=== PATIENT | female | born 1940 | race African-American/Black ===

== ENCOUNTER → 2016-09-19 | Outpatient (CLI) | payer MEDICARE ==
[~2016-09-19] MED LIST: IOHEXOL 300 MG/ML 75 ML VIAL IV ONE
[2016-09-19 09:22] LABS: CREATININE 0.7 mg/dL (0.6-1.0); GFR 99.2
--- NOTE | 2016-09-19 10:59 | RAD ---
Indication: Left flank pain left lower quadrant pain for several months. Pre- and postintravenous contrast axial imaging of the abdomen and pelvis was performed. No prior studies are available for comparison. Imaging through the lung bases demonstrate some minimal infiltrate or atelectasis in the lingula. The liver is unremarkable. The gallbladder contains a stone. The pancreas and spleen are unremarkable. No adrenal mass is detected. The kidneys are unremarkable apart from a large cyst involving the lower pole of the right kidney measuring 6.2 cm in size. The aorta is nonaneurysmal. The small and large bowel loops are normal caliber. No free fluid in the abdomen or pelvis is seen. The bladder is unremarkable. No definite abdominal or pelvic lymphadenopathy is identified. Impression: 1. Right renal cyst. No acute feature in the abdomen or pelvis is identified. 2. Cholelithiasis.
== END | disposition home or self-care (01) ==
LOC: CT 08:49
PROVIDERS: ATTEND Nurse Practitioner Occupational Health
DX: J98.11 Atelectasis (principal); R91.8 Other nonspecific abnormal finding of lung field; K80.20 Calculus of gallbladder without cholecystitis without obstruction; N28.1 Cyst of kidney, acquired
CPT/HCPCS: 36415; 74178; 82565; Q9967

== ENCOUNTER → 2017-01-27 | Outpatient (CLI) | payer MEDICARE ==
--- NOTE | 2017-01-27 09:35 | RAD ---
Indication leg pain. Grayscale color Doppler and spectral imaging was performed. The examination was targeted to the veins of the left lower extremity. The common femoral, femoral and popliteal vessels demonstrate normal flow compressibility and augmentation. No thrombus is seen. The calf veins are not optimally visualized but no definite calf DVT was seen. IMPRESSION: Suboptimal visualization of left calf veins. No definite DVT seen in the left lower extremity
--- NOTE | 2017-01-27 09:43 | RAD ---
Indication leg pain. Grayscale color Doppler and spectral imaging was performed. The examination was targeted to the major arteries of the left lower extremity. There is a normal triphasic waveform in the common femoral artery. A biphasic waveform is seen in the deep femoral. A normal triphasic waveform is seen throughout the superficial femoral artery. A biphasic waveform is seen in the popliteal artery indicative of some disease at the SFA popliteal junction. Biphasic waveforms are seen associated with the posterior tibial artery, peroneal artery and anterior tibial arteries. A monophasic to biphasic waveform is seen associated with the dorsal pedal artery. IMPRESSION: No evidence of high-grade arterial stenosis in the major arteries of the left lower extremity
== END | disposition home or self-care (01) ==
LOC: US 08:49
PROVIDERS: ATTEND Family Medicine
DX: M79.605 Pain in left leg (principal)
CPT/HCPCS: 93926; 93971

== ENCOUNTER → 2017-03-08 | Outpatient (CLI) | payer MEDICARE ==
[2017-03-08 16:09] LABS: HEMATOCRIT 40.6 % (36.0-47.0); HEMOGLOBIN 13.7 g/dL (12.0-15.5)
[2017-03-08 16:40] LABS: CREATININE 0.9 mg/dL (0.6-1.0); GFR 74.1
== END | disposition home or self-care (01) ==
LOC: LAB 15:45
PROVIDERS: ATTEND Family Medicine
DX: R27.0 Ataxia, unspecified (principal); H53.8 Other visual disturbances; I10 Essential (primary) hypertension; G62.9 Polyneuropathy, unspecified; E66.9 Obesity, unspecified; K57.90 Diverticulosis of intestine, part unspecified, without perforation or abscess without bleeding; E78.5 Hyperlipidemia, unspecified; K21.9 Gastro-esophageal reflux disease without esophagitis; R73.09 Other abnormal glucose; M54.40 Lumbago with sciatica, unspecified side; K59.01 Slow transit constipation; M25.562 Pain in left knee; G89.29 Other chronic pain; M17.11 Unilateral primary osteoarthritis, right knee; G25.81 Restless legs syndrome; N32.81 Overactive bladder; N95.2 Postmenopausal atrophic vaginitis; J30.1 Allergic rhinitis due to pollen; Z68.36 Body mass index [BMI] 36.0-36.9, adult; Z68.37 Body mass index [BMI] 37.0-37.9, adult; Z68.38 Body mass index [BMI] 38.0-38.9, adult; F41.9 Anxiety disorder, unspecified
CPT/HCPCS: 36415; 82565; 82607; 84443; 84520; 85014; 85018

== ENCOUNTER → 2017-03-13 | Outpatient (CLI) | payer MEDICARE ==
--- NOTE | 2017-03-13 09:40 | RAD ---
MRI Brain without contrast History: Ataxia, vertigo Technique: Multiplanar, multisequential noncontrast MR imaging was performed of the brain. Contrast: None Comparison: April 02, 2015 Findings: There is no evidence of an acute infarct or cytotoxic edema. There is a mild the supratentorial involutional change, ventricular size stable and considered within normal limits. There is again mild T2 and FLAIR hyperintense abnormality of the supratentorial white matter bilaterally, not significantly changed. There is no new significant hemosiderin deposition of the brain parenchyma.There is no significant midline shift, mass effect, or focal abnormal extra-axial fluid collection. There is no significant signal abnormality of the brain parenchyma. There is preservation of the major intracranial flow-voids at the skull base. There is again some patchy fluid and thickening in the right mastoid air cells, left mastoid air cells overall aerated. There is somewhat lobulated fluid signal intensity along the anterior aspect of the maxillary bone, also apparently of the mandible associated with roots of the teeth.The cerebellar tonsils are normal in location. There is no significant abnormality of the pineal gland or pituitary gland. There is patchy mild ethmoid air cell mucosal thickening. There is nonspecific increased CSF signal of the optic nerve sheaths. There is preserved marrow signal of the clivus. Impression: 1. Infrarenal findings are unchanged comparing with the March 2015 exam. Minimal T2 and FLAIR hyperintense abnormality of the supratentorial white matter may be due to chronic microvascular ischemic disease in a patient this age. 2. There is again some patchy fluid and thickening of the right mastoid air cells, mild ethmoid air cell mucosal thickening. 3. Mild increased CSF signal about the nerve sheaths is nonspecific, may be incidental unless suspicion for intracranial hypertension. 4. There are some cystic foci of signal abnormality in the region of the visualized maxillary bone and mandible associated with roots of teeth. Findings may be due to nonspecific cysts unless there is suspicion for periapical abscesses. Electronically signed by: Hernan Cobb MD (03/13/2017 9:37 AM) [facility]
== END | disposition home or self-care (01) ==
LOC: MRI 08:27
PROVIDERS: ATTEND Psychiatry & Neurology Neurology
DX: R27.0 Ataxia, unspecified (principal)
CPT/HCPCS: 70551

== ENCOUNTER → 2017-04-21 | Outpatient (CLI) | payer MEDICARE ==
[2017-04-21 12:25] LABS: BASO # 0.1 x10^3/uL (0.0-0.2); BASO % 1 % (0-3); EOS % 0 % (0-3); HEMATOCRIT 42.2 % (36.0-47.0); HEMOGLOBIN 13.8 g/dL (12.0-15.5); LYMPH # 2.4 x10^3/uL (1.0-4.8); LYMPH % 32 % (24-48); MEAN CORPUSCULAR HEMOGLOBIN 32 pg (25-35); MEAN CORPUSCULAR HGB CONC 33 g/dL (31-37); MEAN CORPUSCULAR VOLUME 98 fL (79-100); MONO % 7 % (0-9); NEUT % 59 % (31-73); PLATELET COUNT 306 x10^3/uL (140-400); RED BLOOD COUNT 4.32 x10^6/uL (3.50-5.40); RED CELL DISTRIBUTION WIDTH 13.1 % (11.5-14.5); WHITE BLOOD COUNT 7.6 x10^3/uL (4.0-11.0)
[2017-04-21 12:35] LABS: PROTHROMBIN TIME PATIENT 12.8 SEC (11.7-14.0)
== END | disposition home or self-care (01) ==
LOC: LAB 12:10
PROVIDERS: ATTEND Psychiatry & Neurology Neurology
DX: G93.2 Benign intracranial hypertension (principal)
CPT/HCPCS: 36415; 85025; 85610

== ENCOUNTER 2017-05-03 07:53 | Outpatient (CLI) | payer MEDICARE ==
[~2017-05-03] VITALS: Ht 170.2 cm; Wt 102.1 kg
[2017-05-03] MEDS ORDERED: LIDOCAINE 1% / SOD BICARB 8.4% 20 ML VIAL. IJ ONE ×2 (08:29→08:30)
[2017-05-03] MEDS ORDERED: AMLO10TA2 PO (08:36)
[2017-05-03] MEDS ORDERED: BUPR150T11 PO (08:36)
[2017-05-03] MEDS ORDERED: ATOR10TA60 PO (08:36)
[2017-05-03] MEDS ORDERED: POLY17PO29 PO (08:36)
[2017-05-03] MEDS ORDERED: LORA10TA3 PO (08:36)
[2017-05-03] MEDS ORDERED: MECL25TA3 PO (08:36)
[2017-05-03] MEDS ORDERED: LISI-338 PO (08:36)
[2017-05-03] MEDS ORDERED: FURO40TA4 PO (08:36)
[2017-05-03] MEDS ORDERED: MECL12.52 PO (08:36)
[2017-05-03] MEDS ORDERED: OMEP40CA5 PO (08:36)
[2017-05-03] MEDS ORDERED: TRAV5DRO EACHEYE (08:36)
[2017-05-03] MEDS ORDERED: fluticasone 50mcg NAS (08:36)
[2017-05-03] MEDS ORDERED: GABA-586 PO (08:36)
[2017-05-03 08:55] VITALS: BP 103/56
[2017-05-03 09:14] LABS: BASO % 0 % (0-3); EOS % 1 % (0-3); HEMATOCRIT 39.5 % (36.0-47.0); HEMOGLOBIN 12.9 g/dL (12.0-15.5); LYMPH # 1.3 x10^3/uL (1.0-4.8); LYMPH % 22 % (24-48); MEAN CORPUSCULAR HEMOGLOBIN 32 pg (25-35); MEAN CORPUSCULAR HGB CONC 33 g/dL (31-37); MEAN CORPUSCULAR VOLUME 99 fL (79-100); MONO % 8 % (0-9); NEUT % 69 % (31-73); PLATELET COUNT 276 x10^3/uL (140-400); RED BLOOD COUNT 4.01 x10^6/uL (3.50-5.40); RED CELL DISTRIBUTION WIDTH 13.1 % (11.5-14.5); WHITE BLOOD COUNT 6.1 x10^3/uL (4.0-11.0)
[2017-05-03 09:44] LABS: INR 1.1 (0.8-1.1); PROTHROMBIN TIME PATIENT 13.4 SEC (11.7-14.0)
[2017-05-03 11:10] VITALS: BP 149/71
[2017-05-03 11:30] VITALS: BP 123/64
[2017-05-03 11:56] LABS: CSF PROTEIN 29.7 mg/dL (15.0-45.0)
--- NOTE | 2017-05-03 12:25 | RAD ---
Indication: Suspect pseudotumor cerebri. Lumbar puncture for purposes of acquiring CSF as well as opening and closing pressures was requested. Lumbar puncture was explained to the patient. The risks of infection and bleeding were outlined. The possibility of damage to nerve roots was discussed. The possibility of a postprocedure headache necessitating placement of a blood patch was also discussed. The patient understood the risks associated with the procedure and wished to proceed. The back was palpated. Using fluoroscopic guidance an appropriate level to gain entry into the subarachnoid space was identified. Initially the patient was placed in a left side on decubitus position and an attempt was made to perform the lumbar puncture with the patient in this position using a midline approach at L2-3. Several attempts were made all of which were unsuccessful. Subsequently the patient was placed prone and a left para midline approach was utilized. A 20-gauge spinal needle was used to gain entry into the subarachnoid space at L3. Clear CSF was encountered. Approximately 4 cc of fluid were withdrawn. A long 15 cm spinal needle was used to gain access into the subarachnoid space. CSF did not flow from the needle indicating a pressure less than 15 mmHg. Prior to all attempted lumbar punctures the skin was prepped and draped in the routine fashion and local anesthesia was accomplished with 1% lidocaine. 2 fluoroscopic images were obtained. Fluoroscopy time associated with the procedure was 9 minutes. IMPRESSION:: Opening pressure less than 15 mmHg. Approximately 4 cc of CSF were withdrawn and sent to the laboratory for analysis.
[2017-05-03 12:47] LABS: CSF CLARITY CLEAR; CSF COLOR COLORLESS
== END 2017-05-03 11:45 | disposition home or self-care (01) ==
LOC: RAD 07:53
PROVIDERS: ATTEND Psychiatry & Neurology Neurology
DX: G93.2 Benign intracranial hypertension (principal); I10 Essential (primary) hypertension
CPT/HCPCS: 36415; 62270; 82945; 83873; 84157; 85025; 85610; 87071; 87075; 87102; 87205; 87252; 89051

== ENCOUNTER → 2019-03-06 | Outpatient (CLI) | payer MEDICARE ==
[~2019-03-06] MED LIST changes: +AMLO10TA8 PO; +ATOR10TA60 PO; +BUPR150T11 PO; +FURO40TA4 PO; +GABA300C18 PO; -IOHEXOL 300 MG/ML 75 ML VIAL IV ONE; +LISI-338 PO; +LORA10TA3 PO; +MECL12.52 PO; +MECL25TA3 PO; +OMEP40CA5 PO; +POLY17PO29 PO; +TRAV5DRO EACHEYE; +fluticasone 50mcg NAS
--- NOTE | 2019-03-06 16:37 | [facility] ---
Examination: ABDOMEN COMPLETE History: Bilirubin in urine. Right upper quadrant pain. Comparison/Correlation: 09/19/2016 CT abdomen and pelvis without with contrast Findings: Fatty infiltration of liver is present. Portal venous flow is unremarkable. Liver length is 15.6. Common bile duct measures up to 0.44 cm. Calculus is present within the gallbladder neck without change in location upon patient patient in the left lateral decubitus position. Additional smaller calculi appear to be present within the gallbladder. No evidence of acute inflammation. No biliary dilatation. Proximal pancreas is normal. Subtle pancreas is obscured by bowel gas. Abdominal aortic diameter of up to 2.7 cm present. Right kidney measures 12.1 cm x 5.7 cm x 6.3 cm. Right renal lower pole cyst measuring up to 8.2 cm diameter is present. Left kidney measures 11.5 cm x 5.7 cm x 5.7 cm. No hydronephrosis. Abdominal aortic diameter of up to 2.7 cm proximally is evident. Bilateral ureteral jets are present. No abdominal ascites identified. Impression: Fatty infiltration liver. Cholelithiasis. Calculus within the gallbladder neck. No biliary dilatation. Electronically signed by: Luis Taylor MD (03/06/2019 4:34 PM) [facility]
== END | disposition home or self-care (01) ==
LOC: KCIC US 08:46
PROVIDERS: ATTEND Physician Assistant Surgical
DX: K76.0 Fatty (change of) liver, not elsewhere classified (principal); K80.20 Calculus of gallbladder without cholecystitis without obstruction
CPT/HCPCS: 76700